=== PATIENT | female | born 1995 | race African-American/Black ===

== ENCOUNTER 2022-03-04 06:20 | Inpatient (IN) ==
[2022-03-04] MEDS ORDERED: METHYLERGONOVINE 0.2 MG/1 ML AMP IM PRN (06:32)
[2022-03-04] MEDS ORDERED: CLINDAMYCIN INJ 900 MG/50 ML PREMIX IV ONE (06:32)
[2022-03-04] MEDS ORDERED: FAMOTIDINE 20 MG/2 ML VIAL IV PRN (06:32)
[2022-03-04] MEDS ORDERED: CARBOPROST TROMETHAMINE 250 MCG/ML AMP IM PRN (06:32)
[2022-03-04] MEDS ORDERED: TRANEXAMIC ACID 1,000 MG in SODIUM CHLORIDE 0.9% 100 ML IV PRN (06:32)
[2022-03-04] MEDS ORDERED: OXYTOCIN/LR 20 UNIT/1,000 ML BAG IV PRN (06:32)
[2022-03-04] MEDS ORDERED: miSOPROStoL 200 MCG TABLET RECTAL PRN (06:32)
[2022-03-04] MEDS ORDERED: CITRIC ACID/SODIUM CITRATE 30 ML UDCUP PO PRN (06:32)
[2022-03-04] MEDS ORDERED: diphenhydrAMINE 50 MG/1 ML VIAL IV PRN ×2 (06:35)
[2022-03-04] MEDS ORDERED: hydrOXYzine HCL 25 MG/1 ML VIAL IM PRN (06:35)
[2022-03-04] MEDS ORDERED: PROMETHAZINE 25 MG/1 ML VIAL IM PRN (06:35)
[2022-03-04] MEDS ORDERED: ONDANSETRON 4 MG/2 ML VIAL IV PRN ×2 (06:35→10:15)
[2022-03-04] MEDS ORDERED: LACTATED RINGERS 1,000 ML IV SCH ×2 (07:00→10:30)
[2022-03-04 07:23] LABS: Basophils # 0.1 10*3/uL (0.0-0.2); Basophils % 0.5 % (0.0-0.8); Eosinophils # 0.1 10*3/uL (0.0-0.87); Eosinophils % 0.9 % (0.00-10.9); Hematocrit 26.1 VOL% (35.7-47.0); Hemoglobin 7.5 GM/DL (12.0-16.0); Immature Granulocytes % 1.3 %; Immature Granulocytes Absolute 0.16 #; Lymphocytes # 2.6 10*3/uL (1.4-4.0); Lymphocytes % 20.6 % (21.3-54.2); Mean Corpuscular HGB Conc 28.7 GM/DL (32-36); Mean Platelet Volume 9.8 FL (9.6-12.0); Monocytes # 0.7 10*3/uL (0.11-0.8); Monocytes % 5.2 % (1.7-12.7); NRBC # 0.09 10*3/uL; Neutrophils % 71.5 % (38.7-73.9); Platelet Count 383 T/CUMM (130-400); Red Blood Count 4.14 MC/CUMM (3.8-5.5); Red Cell Distribution Width 23.8 % (9.3-17.3); White Blood Count 12.7 T/CUMM (4-12)
[2022-03-04] MEDS ORDERED: SODIUM CHLORIDE 0.9% 1,000 ML IV PRN (07:47)
[2022-03-04 07:53] LABS: Hypochromia 1+; Microcytosis 1+; Polychromasia Slight
[2022-03-04 07:54] LABS: Platelet Estimate Normal
[2022-03-04] MEDS ORDERED: miSOPROStoL 200 MCG TABLET ONE (07:56)
[2022-03-04] MEDS ORDERED: SODIUM CHLORIDE 0.9% 0 ML IV ONE (07:56)
[2022-03-04] MEDS ORDERED: TRANEXAMIC ACID 1,000 MG/10 ML VIAL ONE (07:56)
[2022-03-04] MEDS ORDERED: CARBOPROST TROMETHAMINE 250 MCG/ML AMP IM ONE (07:57)
[2022-03-04] MEDS ORDERED: METHYLERGONOVINE 0.2 MG/1 ML AMP ONE (07:57)
[2022-03-04] MEDS ORDERED: OXYTOCIN 10 UNIT/ML VIAL IM ONE (07:59)
[2022-03-04] MEDS ORDERED: OXYTOCIN/LR 30 UNIT/1,000 ML BAG IV ONE ×2 (07:59→12:00)
[2022-03-04] MEDS ORDERED: buprenorphine HCL 0.3 MG/ML VIAL ONE (08:41)
[2022-03-04] MEDS ORDERED: ONDANSETRON 4 MG/2 ML VIAL ONE (08:41)
[2022-03-04 09:11] LABS: RPR Confirm - Less than 1 yr REACTIVE (Nonreactive)
[2022-03-04] MEDS ORDERED: SODIUM CHLORIDE 0.9% 1,000 ML IV ONE (09:39)
[2022-03-04] MEDS ORDERED: PHENYLEPHRINE 1 MG/10 ML SYRINGE IV ONE (09:39)
[2022-03-04] MEDS ORDERED: KETOROLAC 30 MG/1 ML VIAL ONE (09:39)
[2022-03-04] MEDS ORDERED: LACTATED RINGERS 1,000 ML IV ONE (09:39)
[2022-03-04] MEDS ORDERED: METOCLOPRAMIDE 10 MG/2 ML VIAL ONE (09:44)
[2022-03-04 09:54] LABS: Cord Arterial Blood HCO3 18.3 MMOL/L
[2022-03-04 09:58] LABS: Cord Venous Blood PCO2 50.1 MMHG; Cord Venous Blood PO2 < 17
[2022-03-04 10:07] LABS: Mucus,Urine Occasional /LPF (Occasional); Squamous Epithelial Cell,Urine Occasional /HPF (0-10)
[2022-03-04 10:08] LABS: Bilirubin,Urine Negative (Negative); Blood, Urine Negative (Negative); Glucose,Urine (UA) Negative (Negative); Ketones,Urine Negative (Negative); Nitrite,Urine Negative (Negative); Protein,Urine Negative (Negative); Urine Appearance Clear (Clear); Urine Color Yellow (Yellow); Urine pH 6.5 (4.5-8.0)
[2022-03-04] MEDS ORDERED: RHO(D) IMMUNE GLOBULIN 300 MCG SYRINGE IM ONE (10:15)
[2022-03-04] MEDS ORDERED: MAGNESIUM HYDROXIDE SUSP 30 ML UDCUP PO PRN (10:15)
[2022-03-04] MEDS ORDERED: SIMETHICONE CHEW 80 MG TABLET PO PRN (10:15)
[2022-03-04] MEDS ORDERED: ACETAMINOPHEN 325 MG TABLET PO PRN (10:15)
[2022-03-04] MEDS ORDERED: OXYTOCIN/LR 20 UNIT/1,000 ML BAG IV ONE (10:15)
[2022-03-04] MEDS ORDERED: ACETAMINOPHEN 500 MG TABLET PO SCH (13:00)
[2022-03-04 15:11] LABS: Basophils # 0.1 10*3/uL (0.0-0.2); Basophils % 0.3 % (0.0-0.8); Eosinophils % 0.2 % (0.00-10.9); Hematocrit 27.8 VOL% (35.7-47.0); Hemoglobin 8.5 GM/DL (12.0-16.0); Immature Granulocytes % 0.8 %; Immature Granulocytes Absolute 0.15 #; Lymphocytes # 2.1 10*3/uL (1.4-4.0); Lymphocytes % 10.7 % (21.3-54.2); Mean Corpuscular HGB Conc 30.6 GM/DL (32-36); Mean Corpuscular Volume 68.5 FL (87-102); Mean Platelet Volume 9.4 FL (9.6-12.0); Monocytes # 1.1 10*3/uL (0.11-0.8); Monocytes % 5.6 % (1.7-12.7); NRBC # 0.03 10*3/uL; Neutrophils % 82.4 % (38.7-73.9); Platelet Count 279 T/CUMM (130-400); Red Blood Count 4.06 MC/CUMM (3.8-5.5); Red Cell Distribution Width 27.7 % (9.3-17.3); White Blood Count 19.3 T/CUMM (4-12)
[2022-03-04] MEDS ORDERED: KETOROLAC 30 MG/1 ML VIAL IV SCH (16:00)
[2022-03-04 16:19] LABS: Anisocytosis 1+; Hypochromia 1+; Microcytosis 1+; Platelet Estimate Adequate; Polychromasia Slight
[2022-03-04] MEDS: CLINDAMYCIN INJ 900 MG/50 ML PREMIX IV SCH (18:21)
[2022-03-04] MEDS: DOCUSATE SODIUM 100 MG CAPSULE PO SCH (20:58)
[2022-03-05] MEDS: CLINDAMYCIN INJ 900 MG/50 ML PREMIX IV SCH ×3 (01:28→17:11)
[2022-03-05 06:50] LABS: Basophils # 0.1 10*3/uL (0.0-0.2); Basophils % 0.4 % (0.0-0.8); Eosinophils # 0.1 10*3/uL (0.0-0.87); Eosinophils % 0.5 % (0.00-10.9); Hematocrit 23.8 VOL% (35.7-47.0); Hemoglobin 7.3 GM/DL (12.0-16.0); Immature Granulocytes % 0.8 %; Immature Granulocytes Absolute 0.12 #; Lymphocytes % 13.9 % (21.3-54.2); Mean Corpuscular HGB Conc 30.7 GM/DL (32-36); Mean Corpuscular Volume 68.4 FL (87-102); Mean Platelet Volume 9.7 FL (9.6-12.0); Monocytes # 0.7 10*3/uL (0.11-0.8); NRBC # 0.04 10*3/uL; Neutrophils % 79.4 % (38.7-73.9); Platelet Count 248 T/CUMM (130-400); Red Blood Count 3.48 MC/CUMM (3.8-5.5); White Blood Count 14.7 T/CUMM (4-12)
[2022-03-05 07:09] LABS: Hypochromia 1+; Microcytosis 1+; Ovalocytes Slight
[2022-03-05 07:10] LABS: Anisocytosis 1+; Platelet Estimate Normal; Polychromasia Slight; Tear Drop Cells Slight
[2022-03-05] MEDS: DOCUSATE SODIUM 100 MG CAPSULE PO SCH ×2 (08:16→23:04)
[2022-03-05] MEDS: MULTIVITAMIN (PRENATAL) TABLET PO SCH (08:16)
[2022-03-05] MEDS: IBUPROFEN 800 MG TABLET PO PRN ×2 (08:16→16:09)
[2022-03-05] MEDS ORDERED: SODIUM CHLORIDE 0.9% 1,000 ML IV PRN ×4 (09:48→11:11)
[2022-03-05] MEDS ORDERED: FUROSEMIDE 40 MG/4 ML VIAL IV ONE (09:50)
[2022-03-05] MEDS ORDERED: FUROSEMIDE 40 MG/4 ML VIAL IV PRN (09:53)
[2022-03-05] MEDS: FERROUS SULFATE 325 MG TABLET PO SCH ×2 (10:19→21:58)
[2022-03-05 18:09] LABS: Hematocrit 29.5 VOL% (35.7-47.0); Hemoglobin 9.2 GM/DL (12.0-16.0)
[2022-03-06] MEDS: CLINDAMYCIN INJ 900 MG/50 ML PREMIX IV SCH ×2 (07:14→09:55)
[2022-03-06] MEDS ORDERED: INFLUENZA VIRUS VACCINE 0.5 ML SYRINGE IM ONE (09:00)
[2022-03-06] MEDS: FERROUS SULFATE 325 MG TABLET PO SCH (09:53)
[2022-03-06] MEDS: MULTIVITAMIN (PRENATAL) TABLET PO SCH (09:53)
[2022-03-06] MEDS: DOCUSATE SODIUM 100 MG CAPSULE PO SCH (09:56)
[2022-03-06] MEDS: IBUPROFEN 800 MG TABLET PO PRN (10:58)
[2022-03-06 13:27] VITALS: BP 134/72
== END 2022-03-06 14:15 | disposition home or self-care (01) | DRG 540 ==
LOC: N.LD 06:20 → N.OB 15:16
PROVIDERS: ADMIT Obstetrics & Gynecology; ATTEND Obstetrics & Gynecology
PROC: LDCSECT (ICD-10-PCS; 2022-03-04 09:00)